=== PATIENT | female | born 1960 | race Caucasian/White ===

== ENCOUNTER 2023-09-13 11:10 | Outpatient (RCR) | payer BC | END 2023-10-03 | disposition home or self-care (01) | LOC: PT | DX: Z47.1 Aftercare following joint replacement surgery (principal); M25.562 Pain in left knee; Z96.652 Presence of left artificial knee joint ==

== ENCOUNTER 2023-10-04 08:00 | Outpatient (RCR) | payer BC ==
[2023-10-27] MEDS ORDERED: CYCLOBENZAPRINE10 M1 PO (11:51)
[2023-10-27] MEDS ORDERED: HCTZ 25MG25 MG PO (11:52)
[2023-10-27] MEDS ORDERED: LISINOPRIL10 MG PO (11:52)
[2023-10-27] MEDS ORDERED: SEPTRA DS 8001 TAB PO (11:52)
[2023-10-27] MEDS ORDERED: MUPIROCIN2% TP (11:52)
[2023-10-27] MEDS ORDERED: LEVOTHYROXIN0.025 MG PO (11:52)
[2023-10-27] MEDS ORDERED: DOXYCYCLINE HYC50 M1 PO (11:53)
[2023-10-27] MEDS ORDERED: KETOCONAZOLE 1120 ML TP (11:53)
[2023-10-27] MEDS ORDERED: FLUOCINONIDE60 ML TP (11:53)
== END 2023-11-01 | disposition home or self-care (01) ==
LOC: PT
DX: Z47.1 Aftercare following joint replacement surgery (principal); M25.562 Pain in left knee; Z96.652 Presence of left artificial knee joint